=== PATIENT | female | born 1945 | race Caucasian/White ===

== ENCOUNTER 2017-06-09 05:15 | Inpatient (IN) | payer MEDICARE, OTHER ==
[2017-06-08 13:48] LABS: BASOPHILS % (AUTO) 0 % (0-1); EOSINOPHILS # (AUTO) 0.2 X10'3 (0-0.9); EOSINOPHILS % (AUTO) 3.6 % (0-6); LYMPHOCYTES # (AUTO) 0.5 X10'3 (1.1-4.8); LYMPHOCYTES % (AUTO) 11.2 % (21-51); MEAN CORPUSCULAR HEMOGLOBIN 30.6 PG (27.0-31.0); MEAN CORPUSCULAR HGB CONC 32.5 % (33.0-36.5); MEAN CORPUSCULAR VOLUME 94.1 FL (78-98); MEAN PLATELET VOLUME 8.8 FL (7.4-10.4); MONOCYTES # (AUTO) 0.1 X10'3 (0-0.9); MONOCYTES % (AUTO) 2.6 % (2-12); NEUTROPHILS # (AUTO) 3.8 X10'3 (1.8-7.7); NEUTROPHILS % (AUTO) 82.6 % (42-75); PRE OP HEMATOCRIT 35.7 % (35.0-45.0); PRE OP HEMOGLOBIN 11.6 g/dL (12.0-16.0); PRE OP PLATELET COUNT 140 X10'3 (140-440); RED BLOOD COUNT 3.79 X10'6 (4.20-5.60); RED CELL DISTRIBUTION WIDTH 17.2 % (11.5-14.5)
[2017-06-08 13:51] LABS: CLARITY,URINE SLIGHTLY CLOUDY (Clear); COLOR,URINE YELLOW (Yellow); GLUCOSE, URINE NEGATIVE (Neg); KETONES,URINE NEGATIVE (Neg); LEUKOCYTE ESTERASE ,URINE SMALL (Neg); NITRITES, URINE NEGATIVE (Neg); OCCULT BLOOD,URINE NEGATIVE (Neg); PH,URINE 5.5 (4.8-8.0); PROTEIN,URINE NEGATIVE (Neg); UROBILINOGEN,URINE 0.2 E.U/dL (0.2-1.0)
[2017-06-08 13:58] LABS: PRE OP PROTIME 10.4 SECONDS (9.0-12.0)
[2017-06-08 14:02] LABS: ALBUMIN 3.2 G/DL (3.4-5.0); ALKALINE PHOSPHATASE 123 IU/L (46-116); BLOOD UREA NITROGEN 14 MG/DL (7-18); BUN/CREATININE RATIO 14.3 (6.6-38.0); CALCIUM 8.8 MG/DL (8.5-10.1); CHLORIDE 107 MMOL/L (99-107); CREATININE 0.98 MG/DL (0.40-0.90); PRE OP ALT 33 U/L (30-65); PRE OP ANION GAP 6 (8-16); PRE OP AST 27 U/L (10-37); PRE OP BILIRUB, TOTAL 0.4 MG/DL (0.0-1.0); PRE OP GLUCOSE 101 MG/DL (70-104); PRE OP SODIUM 142 MMOL/L (135-145); TOTAL CARBON DIOXIDE 28.6 MMOL/L (24-32); TOTAL PROTEIN 6.5 G/DL (6.4-8.2); eGFR 56 ML/MIN
[2017-06-08 14:11] LABS: UA COLLECTION TYPE CLN CATCH MIDSTREAM
[2017-06-08 14:14] LABS: BACTERIA,URINE 1+ /HPF (Neg); RBC,URINE 0-2 /HPF (0-2); SQUAMOUS EPITHELIAL CELL,UR MANY /LPF (FEW)
[2017-06-09] VITALS (29 sets, daily range): BP systolic 82–140; BP diastolic 36–72
[~2017-06-09] VITALS: Ht 157.5 cm; Wt 82.2 kg
[~2017-06-09 05:15] MED LIST: ALBU8.5H8 INH; ALEN70TA13 PO; AMI25T PO; AMLO1TAB12 PO; CAP25T PO; FOLI-43 PO; FURO-150 PO; GABA-338 PO; HYDR200T84 PO; METH2.5T17 PO; POTA8CAP PO; REM100I IV; THEO600T PO; ringers solution, lacted 1,000 ML IV SCH
[2017-06-09] MEDS ORDERED: famotidine 20mg tablet PO ONE (05:30)
[2017-06-09] MEDS ORDERED: VANCOMYCIN INJ 1000 MG in NORMAL SALINE 250ml IV.SOLN IV ONE (05:30)
[2017-06-09] MEDS ORDERED: cefazolin/dext.iso 2gm/50ml 50 ML IV ONE (05:30)
[2017-06-09] MEDS ORDERED: LIDOcaine 1% (10mg/ml) 2ml vial ONE (06:04)
[2017-06-09 06:21] LABS: CLARITY,URINE Clear (Clear); COLOR,URINE Yellow (Yellow); GLUCOSE, URINE Negative (Neg); KETONES,URINE Negative (Neg); LEUKOCYTE ESTERASE ,URINE Small (Neg); NITRITES, URINE Negative (Neg); OCCULT BLOOD,URINE Negative (Neg); PH,URINE 6.5 (4.8-8.0); PROTEIN,URINE Negative (Neg)
[2017-06-09 06:27] LABS: UA COLLECTION TYPE CLN CATCH MIDSTREAM
[2017-06-09 06:28] LABS: BACTERIA,URINE NONE SEEN /HPF (Neg); MUCUS STRANDS NONE SEEN /LPF (Neg); RBC,URINE NONE SEEN /HPF (0-2); SQUAMOUS EPITHELIAL CELL,UR MODERATE /LPF (FEW); WBC,URINE 0-4 /HPF (0-4)
[2017-06-09] MEDS ORDERED: heparin 10,000 units/1 ML INJ ONE (06:30)
[2017-06-09] MEDS ORDERED: ROPIVAcaine 0.5% (5mg/ml) 30ml vial ONE (06:30)
[2017-06-09] MEDS ORDERED: ketorolac trometh. 30mg/ml inj. ONE (06:30)
[2017-06-09] MEDS ORDERED: sevoflurane 250ml liquid IH ONE (07:21)
[2017-06-09] MEDS ORDERED: fentaNYL/PF 50MCG/1 ML 2ML syringe ONE ×2 (07:25→08:38)
[2017-06-09] MEDS ORDERED: midazolam 2 mg/2 ml injection ONE (07:26)
[2017-06-09] MEDS ORDERED: propofol inj 20 ML IV ONE (07:27)
[2017-06-09] MEDS ORDERED: ringers solution, lacted 1,000 ML IV SCH (08:23)
[2017-06-09] MEDS ORDERED: ondansetron/PF 4mg/2ml inj IV PRN ×2 (08:25→10:40)
[2017-06-09] MEDS ORDERED: meperidine/PF 25mg/ml syringe IV ONE (08:25)
[2017-06-09] MEDS ORDERED: meperidine/PF 25mg/ml syringe IV PRN (08:25)
[2017-06-09] MEDS ORDERED: HYDROmorphone 1 mg/ml syringe IV PRN (08:25)
[2017-06-09] MEDS ORDERED: proCHLORperazine 10 MG/2 ml inj IV PRN (08:25)
[2017-06-09] MEDS ORDERED: rocuronium 10mg/ml inj IV ONE (08:38)
[2017-06-09] MEDS ORDERED: ceFAZolin 1000mg inj ONE (09:45)
[2017-06-09] MEDS ORDERED: non-formulary drug (Alendronate Sodium 70 MG) PO SCH (10:35)
[2017-06-09] MEDS ORDERED: bisacodyl 10mg suppository rectal RC PRN (10:40)
[2017-06-09] MEDS ORDERED: acetaminophen 325mg tablet PO PRN (10:40)
[2017-06-09] MEDS ORDERED: magnesium hydroxide 30ml (MOM) UD suspension PO PRN (10:40)
[2017-06-09] MEDS ORDERED: naloxone 0.4 mg/ml inj IV PRN (10:40)
[2017-06-09] MEDS ORDERED: CADD PCA waste documentation MC PRN (10:40)
[2017-06-09] MEDS ORDERED: diphenhydrAMINE 25mg capsule PO PRN (10:40)
[2017-06-09] MEDS ORDERED: albuterol 2.5 MG/3 ML nebule NEB PRN (10:45)
[2017-06-09] MEDS: meperidine/PF 25mg/ml syringe IV PRN ×2 (11:11→15:48)
[2017-06-09] MEDS ORDERED: acetaminophen 1,000mg/100ml IV 100 ML IV PRN (11:15)
[2017-06-09] MEDS ORDERED: fentaNYL/PF 50MCG/1 ML 2ML syringe IV PRN ×2 (11:15)
[2017-06-09] MEDS ORDERED: HYDROmorphone inj. 0.5 MG/0.5 ML DISP.SYRIN IV PRN (11:35)
[2017-06-09] MEDS: HYDROmorphone/NS 1 mg/ml CADD 50 ML IV SCH ×8 (11:35→23:53)
[2017-06-09] MEDS ORDERED: theophylline anhydrous 100mg SR-12hr tablet PO SCH (13:00)
[2017-06-09] MEDS ORDERED: gabapentin 300mg capsule PO SCH (13:00)
[2017-06-09] MEDS: potassium cl 20mEq in 1/2 NS 1,000 ML IV SCH ×2 (14:04→20:41)
[2017-06-09] MEDS: gabapentin 300mg capsule PO SCH ×2 (14:04→20:33)
[2017-06-09] MEDS: ceFAZolin inj. 1,000 MG in dextrose 5%-water 50ml 50 ML IV SCH ×2 (16:20→23:48)
[2017-06-09] MEDS ORDERED: vancomycin/NS 1 GM ADD-VANTAGE 250 ML IV SCH (20:00)
[2017-06-09] MEDS ORDERED: celeCOXIB 100mg capsule PO SCH (20:00)
[2017-06-09] MEDS: ascorbic acid 500mg tablet PO SCH (20:32)
[2017-06-09] MEDS: sennosides/docusate sodium tablet PO SCH (20:32)
[2017-06-09] MEDS: amitriptyline 25mg tablet PO SCH (20:32)
[2017-06-09] MEDS: THEOPHYLLINE 300 MG PO SCH (21:00)
[2017-06-09] MEDS: amLODIPine 5mg tablet PO SCH (21:00)
[2017-06-09] MEDS ORDERED: AMLODIPINE PO SCH (21:00)
[2017-06-09] MEDS: sennosides 8.6mg tablet PO SCH (21:00)
[2017-06-09] MEDS ORDERED: VALSARTAN PO SCH (21:00)
[2017-06-10] VITALS (14 sets, daily range): BP systolic 89–138; BP diastolic 42–80
[2017-06-10] MEDS: potassium cl 20mEq in 1/2 NS 1,000 ML IV SCH ×4 (02:37→21:58)
[2017-06-10] MEDS: HYDROmorphone/NS 1 mg/ml CADD 50 ML IV SCH ×8 (03:00→17:00)
[2017-06-10 06:41] LABS: BASOPHILS % (AUTO) 0.2 % (0-1); EOSINOPHILS # (AUTO) 0.1 X10'3 (0-0.9); EOSINOPHILS % (AUTO) 3.6 % (0-6); HEMATOCRIT 23.3 % (35.0-45.0); HEMOGLOBIN 7.7 g/dl (12.0-16.0); LYMPHOCYTES # (AUTO) 1.1 X10'3 (1.1-4.8); LYMPHOCYTES % (AUTO) 29.7 % (21-51); MEAN CORPUSCULAR HEMOGLOBIN 31.1 PG (27.0-31.0); MEAN PLATELET VOLUME 8.4 FL (7.4-10.4); MONOCYTES # (AUTO) 0.1 X10'3 (0-0.9); MONOCYTES % (AUTO) 4.1 % (2-12); NEUTROPHILS # (AUTO) 2.2 X10'3 (1.8-7.7); NEUTROPHILS % (AUTO) 62.4 % (42-75); PLATELET COUNT 114 X10'3 (140-440); RED BLOOD COUNT 2.48 X10'6 (4.20-5.60); WHITE BLOOD COUNT 3.6 X10'3 (4.5-11.0)
[2017-06-10] MEDS: potassium chloride 8mEq ER tablet PO SCH (07:58)
[2017-06-10] MEDS: folic acid 1mg tablet PO SCH (07:58)
[2017-06-10] MEDS: gabapentin 300mg capsule PO SCH ×3 (07:59→20:32)
[2017-06-10] MEDS: furosemide 20MG tablet PO SCH (08:00)
[2017-06-10] MEDS: lisinopril 20mg tablet PO SCH (08:00)
[2017-06-10] MEDS: multivitamins, therapeutics tablet PO SCH (08:01)
[2017-06-10] MEDS: sennosides/docusate sodium tablet PO SCH ×2 (08:01→20:32)
[2017-06-10] MEDS: ascorbic acid 500mg tablet PO SCH ×2 (08:02→20:31)
[2017-06-10] MEDS: HYDROcodone/acetaminophen 10/325mg tab PO PRN ×4 (08:03→20:36)
[2017-06-10] MEDS: hydroxychloroquine 200mg tablet PO SCH (08:04)
[2017-06-10] MEDS: enoxaparin 40mg/0.4ml syringe SQ SCH (08:06)
[2017-06-10 08:14] LABS: ANION GAP 8 (8-16); CHLORIDE 106 MMOL/L (99-107); POTASSIUM 4.7 MMOL/L (3.5-5.1); SODIUM 136 MMOL/L (135-145)
[2017-06-10] MEDS: THEOPHYLLINE 300 MG PO SCH ×3 (09:45→20:37)
[2017-06-10] MEDS: diphenhydrAMINE 25mg capsule PO PRN ×2 (12:31→19:19)
[2017-06-10] MEDS ORDERED: HYDROmorphone 1 mg/ml syringe IV PRN ×2 (18:50)
[2017-06-10] MEDS: sennosides 8.6mg tablet PO SCH (20:31)
[2017-06-10] MEDS: amLODIPine 5mg tablet PO SCH (20:36)
[2017-06-10] MEDS: amitriptyline 25mg tablet PO SCH (20:36)
[2017-06-11] MEDS: diphenhydrAMINE 25mg capsule PO PRN ×3 (04:55→21:48)
[2017-06-11] MEDS: HYDROcodone/acetaminophen 10/325mg tab PO PRN ×3 (04:56→14:32)
[2017-06-11 06:00] VITALS: BP 118/57
[2017-06-11 06:34] LABS: BASOPHILS % (AUTO) 0.3 % (0-1); EOSINOPHILS # (AUTO) 0.1 X10'3 (0-0.9); EOSINOPHILS % (AUTO) 4.4 % (0-6); HEMATOCRIT 28.5 % (35.0-45.0); HEMOGLOBIN 9.7 g/dl (12.0-16.0); LYMPHOCYTES # (AUTO) 1.2 X10'3 (1.1-4.8); LYMPHOCYTES % (AUTO) 34.7 % (21-51); MEAN CORPUSCULAR HEMOGLOBIN 31.3 PG (27.0-31.0); MEAN CORPUSCULAR HGB CONC 33.9 % (33.0-36.5); MEAN CORPUSCULAR VOLUME 92.2 FL (78-98); MEAN PLATELET VOLUME 8.1 FL (7.4-10.4); MONOCYTES # (AUTO) 0.3 X10'3 (0-0.9); MONOCYTES % (AUTO) 8.6 % (2-12); NEUTROPHILS # (AUTO) 1.8 X10'3 (1.8-7.7); PLATELET COUNT 83 X10'3 (140-440); RED BLOOD COUNT 3.09 X10'6 (4.20-5.60); RED CELL DISTRIBUTION WIDTH 16.5 % (11.5-14.5); WHITE BLOOD COUNT 3.4 X10'3 (4.5-11.0)
[2017-06-11] MEDS: gabapentin 300mg capsule PO SCH ×3 (07:54→19:54)
[2017-06-11] MEDS: folic acid 1mg tablet PO SCH (07:54)
[2017-06-11] MEDS: potassium chloride 8mEq ER tablet PO SCH (07:54)
[2017-06-11] MEDS: multivitamins, therapeutics tablet PO SCH (07:55)
[2017-06-11] MEDS: sennosides/docusate sodium tablet PO SCH ×2 (07:55→19:53)
[2017-06-11] MEDS: ascorbic acid 500mg tablet PO SCH ×2 (07:55→19:53)
[2017-06-11] MEDS: THEOPHYLLINE 300 MG PO SCH (07:59)
[2017-06-11] MEDS: hydroxychloroquine 200mg tablet PO SCH ×2 (07:59→15:38)
[2017-06-11] MEDS: lisinopril 20mg tablet PO SCH (07:59)
[2017-06-11] MEDS: furosemide 20MG tablet PO SCH (07:59)
[2017-06-11] MEDS: enoxaparin 40mg/0.4ml syringe SQ SCH (08:00)
[2017-06-11 10:00] VITALS: BP 105/58
[2017-06-11] MEDS ORDERED: THEOPHYLLINE 300 MG PO SCH (11:50)
[2017-06-11] MEDS: [UNRECOGNIZED DRUG - OTHER] PO SCH ×2 (14:31→19:54)
[2017-06-11 18:00] VITALS: BP 113/48
[2017-06-11] MEDS: amLODIPine 5mg tablet PO SCH (19:53)
[2017-06-11] MEDS: amitriptyline 25mg tablet PO SCH (19:54)
[2017-06-11] MEDS: sennosides 8.6mg tablet PO SCH (20:06)
[2017-06-11 22:00] VITALS: BP 108/62
[2017-06-12] MEDS: diphenhydrAMINE 25mg capsule PO PRN ×2 (04:47→19:08)
[2017-06-12 06:35] LABS: BASOPHILS % (AUTO) 0.3 % (0-1); EOSINOPHILS # (AUTO) 0.2 X10'3 (0-0.9); EOSINOPHILS % (AUTO) 4.3 % (0-6); HEMATOCRIT 28.3 % (35.0-45.0); HEMOGLOBIN 9.6 g/dl (12.0-16.0); LYMPHOCYTES # (AUTO) 1.2 X10'3 (1.1-4.8); MEAN CORPUSCULAR HEMOGLOBIN 31.2 PG (27.0-31.0); MEAN CORPUSCULAR HGB CONC 33.8 % (33.0-36.5); MEAN CORPUSCULAR VOLUME 92.4 FL (78-98); MEAN PLATELET VOLUME 8.4 FL (7.4-10.4); MONOCYTES # (AUTO) 0.6 X10'3 (0-0.9); MONOCYTES % (AUTO) 11.3 % (2-12); NEUTROPHILS # (AUTO) 3.1 X10'3 (1.8-7.7); NEUTROPHILS % (AUTO) 61.1 % (42-75); PLATELET COUNT 86 X10'3 (140-440); RED BLOOD COUNT 3.06 X10'6 (4.20-5.60); WHITE BLOOD COUNT 5.1 X10'3 (4.5-11.0)
[2017-06-12 07:06] VITALS: BP 121/62
[2017-06-12] MEDS: [UNRECOGNIZED DRUG - OTHER] PO SCH ×3 (08:07→21:37)
[2017-06-12] MEDS: hydroxychloroquine 200mg tablet PO SCH (08:08)
[2017-06-12] MEDS: lisinopril 20mg tablet PO SCH (08:08)
[2017-06-12] MEDS: furosemide 20MG tablet PO SCH (08:08)
[2017-06-12] MEDS: folic acid 1mg tablet PO SCH (08:08)
[2017-06-12] MEDS: multivitamins, therapeutics tablet PO SCH (08:08)
[2017-06-12] MEDS: sennosides/docusate sodium tablet PO SCH ×2 (08:08→20:00)
[2017-06-12] MEDS: ascorbic acid 500mg tablet PO SCH ×2 (08:08→21:36)
[2017-06-12] MEDS: potassium chloride 8mEq ER tablet PO SCH (08:08)
[2017-06-12] MEDS: gabapentin 300mg capsule PO SCH ×3 (08:08→21:36)
[2017-06-12] MEDS: enoxaparin 40mg/0.4ml syringe SQ SCH (11:05)
[2017-06-12] MEDS: HYDROcodone/acetaminophen 10/325mg tab PO PRN (13:43)
[2017-06-12 14:59] VITALS: BP 110/56
[2017-06-12 19:00] VITALS: BP 120/53
[2017-06-12] MEDS: sennosides 8.6mg tablet PO SCH (21:00)
[2017-06-12] MEDS: amLODIPine 5mg tablet PO SCH (21:36)
[2017-06-12] MEDS: amitriptyline 25mg tablet PO SCH (21:36)
[2017-06-12 22:00] VITALS: BP 104/45
[2017-06-13] MEDS: HYDROcodone/acetaminophen 10/325mg tab PO PRN ×4 (01:36→15:27)
[2017-06-13 06:00] VITALS: BP 123/62
[2017-06-13] MEDS: enoxaparin 40mg/0.4ml syringe SQ SCH (08:00)
[2017-06-13] MEDS: furosemide 20MG tablet PO SCH (08:16)
[2017-06-13] MEDS: folic acid 1mg tablet PO SCH (08:16)
[2017-06-13] MEDS: potassium chloride 8mEq ER tablet PO SCH (08:16)
[2017-06-13] MEDS: gabapentin 300mg capsule PO SCH ×3 (08:17→21:41)
[2017-06-13] MEDS: hydroxychloroquine 200mg tablet PO SCH (08:17)
[2017-06-13] MEDS: sennosides/docusate sodium tablet PO SCH ×2 (08:18→20:00)
[2017-06-13] MEDS: multivitamins, therapeutics tablet PO SCH (08:18)
[2017-06-13] MEDS: ascorbic acid 500mg tablet PO SCH ×2 (08:18→21:41)
[2017-06-13] MEDS: [UNRECOGNIZED DRUG - OTHER] PO SCH ×2 (08:18→12:38)
[2017-06-13] MEDS: lisinopril 20mg tablet PO SCH (08:19)
[2017-06-13 10:00] VITALS: BP 111/50
[2017-06-13] MEDS: diphenhydrAMINE 25mg capsule PO PRN (10:12)
[2017-06-13 19:00] VITALS: BP 99/46
[2017-06-13] MEDS: amLODIPine 5mg tablet PO SCH (21:00)
[2017-06-13] MEDS: sennosides 8.6mg tablet PO SCH (21:00)
[2017-06-13] MEDS: amitriptyline 25mg tablet PO SCH (21:41)
[2017-06-13 22:30] VITALS: BP 105/47
[2017-06-14 02:30] VITALS: BP 115/65
[2017-06-14] MEDS: HYDROcodone/acetaminophen 10/325mg tab PO PRN (04:41)
[2017-06-14 06:00] VITALS: BP 121/50
[2017-06-14] MEDS: lisinopril 20mg tablet PO SCH (07:29)
[2017-06-14] MEDS: gabapentin 300mg capsule PO SCH (07:29)
[2017-06-14] MEDS: furosemide 20MG tablet PO SCH (07:30)
[2017-06-14] MEDS: ascorbic acid 500mg tablet PO SCH (07:30)
[2017-06-14] MEDS: multivitamins, therapeutics tablet PO SCH (07:30)
[2017-06-14] MEDS: potassium chloride 8mEq ER tablet PO SCH (07:31)
[2017-06-14] MEDS: sennosides/docusate sodium tablet PO SCH (07:31)
[2017-06-14] MEDS: hydroxychloroquine 200mg tablet PO SCH (07:31)
[2017-06-14] MEDS: folic acid 1mg tablet PO SCH (07:32)
[2017-06-14] MEDS: enoxaparin 40mg/0.4ml syringe SQ SCH (07:33)
[2017-06-14] MEDS ORDERED: [UNRECOGNIZED DRUG - OTHER] PO SCH (08:00)
[2017-06-14 10:00] VITALS: BP 109/49
== END 2017-06-14 11:30 | DRG 470 ==
LOC: PAS IN 05:15 → EDSTATUS 07:30 → ORTHO 4S 13:25
PROVIDERS: ADMIT Orthopaedic Surgery; ATTEND Orthopaedic Surgery
PROC: 0SR902Z Replacement of Right Hip Joint with Metal on Polyethylene Synthetic Substitute, Open Approach (ICD-10-PCS; principal; 2017-06-09 07:21)
PROC: 30233N1 Transfusion of Nonautologous Red Blood Cells into Peripheral Vein, Percutaneous Approach (ICD-10-PCS; 2017-06-10)
DX: M16.11 Unilateral primary osteoarthritis, right hip (principal); E66.9 Obesity, unspecified; M06.851 Other specified rheumatoid arthritis, right hip; N18.3 Chronic kidney disease, stage 3 (moderate); D62 Acute posthemorrhagic anemia; J45.909 Unspecified asthma, uncomplicated; M54.2 Cervicalgia; M54.5 Low back pain; M17.0 Bilateral primary osteoarthritis of knee; E78.5 Hyperlipidemia, unspecified; M81.0 Age-related osteoporosis without current pathological fracture; G89.4 Chronic pain syndrome; K21.9 Gastro-esophageal reflux disease without esophagitis; I12.9 Hypertensive chronic kidney disease with stage 1 through stage 4 chronic kidney disease, or unspecified chronic kidney disease; Z96.642 Presence of left artificial hip joint; Z88.6 Allergy status to analgesic agent; Z88.1 Allergy status to other antibiotic agents; Z79.899 Other long term (current) drug therapy; Z82.61 Family history of arthritis; Z82.49 Family history of ischemic heart disease and other diseases of the circulatory system; Z68.33 Body mass index [BMI] 33.0-33.9, adult
CPT/HCPCS: 36415; 73502; 76001; 80051; 80053; 81001; 85025; 85610; 85730; 86885; 86900; 86901; 86920; 87070; 87077; 87088; 97110; 97116; 97161; 97530; A6250; A6255; A6257; A6258; A6446; A6449; A6454; A7000; C1758; C1776; J0690; J1170; J1644; J1650; J1885; J2175; J2250; J2704; J2795; J3010; J3370; J3490; J7030; J7060; J7120; P9016; Q0163

== ENCOUNTER 2019-04-05 07:41 | Day surgery (SDC) | payer MEDICARE, OTHER ==
[2019-03-28 15:00] LABS: BASOPHILS # (AUTO) 0.1 X10'3 (0-0.2); BASOPHILS % (AUTO) 0.6 % (0-1); EOSINOPHILS # (AUTO) 0.3 X10'3 (0-0.9); EOSINOPHILS % (AUTO) 2.5 % (0-6); LYMPHOCYTES # (AUTO) 3.1 X10'3 (1.1-4.8); LYMPHOCYTES % (AUTO) 28.4 % (21-51); MEAN CORPUSCULAR HEMOGLOBIN 31.6 PG (27.0-31.0); MEAN CORPUSCULAR HGB CONC 33.4 g/dL (33.0-36.5); MEAN CORPUSCULAR VOLUME 94.6 FL (78-98); MEAN PLATELET VOLUME 9.6 FL (7.4-10.4); MONOCYTES # (AUTO) 1.1 X10'3 (0-0.9); MONOCYTES % (AUTO) 10.4 % (2-12); NEUTROPHILS # (AUTO) 6.3 X10'3 (1.8-7.7); NEUTROPHILS % (AUTO) 58.1 % (42-75); PRE OP HEMATOCRIT 41.2 % (35.0-45.0); PRE OP HEMOGLOBIN 13.8 g/dL (12.0-16.0); PRE OP PLATELET COUNT 219 X10'3 (140-440); RED BLOOD COUNT 4.35 X10'6 (4.20-5.60); RED CELL DISTRIBUTION WIDTH 15.5 % (11.5-14.5)
[2019-03-28 15:09] LABS: PRE OP PROTIME 10.9 SECONDS (9.0-12.0)
[2019-03-28 15:11] LABS: ALBUMIN 3.6 G/DL (3.4-5.0); ALBUMIN/GLOBULIN RATIO 0.9 (1.1-1.5); ALKALINE PHOSPHATASE 120 IU/L (46-116); BLOOD UREA NITROGEN 18 MG/DL (7-18); BUN/CREATININE RATIO 16.4 (6.6-38.0); CALCIUM 9.1 MG/DL (8.5-10.1); CHLORIDE 110 MMOL/L (99-107); PRE OP ALT 21 U/L (30-65); PRE OP ANION GAP 10 (8-16); PRE OP AST 18 U/L (10-37); PRE OP BILIRUB, TOTAL 0.3 MG/DL (0.0-1.0); PRE OP GLUCOSE 91 MG/DL (70-104); PRE OP POTASSIUM 3.7 MMOL/L (3.4-5.1); PRE OP SODIUM 147 MMOL/L (135-145); TOTAL CARBON DIOXIDE 27.2 MMOL/L (24-32); TOTAL PROTEIN 7.4 G/DL (6.4-8.2); eGFR 49 ML/MIN
[2019-04-05] VITALS (10 sets, daily range): BP systolic 125–162; BP diastolic 59–79
[~2019-04-05] VITALS: Ht 157.5 cm; Wt 82.0 kg
[~2019-04-05 07:41] MED LIST changes: -ALEN70TA13 PO; -AMI25T PO; +CALC-854 PO; -CAP25T PO; +MULT-1133 PO; +albuterol 2.5 MG/3 ML nebule NEB ONE; +cefazolin/dext.iso 2gm/100 ML IV ONE; +famotidine 20mg tablet PO ONE; +vancomycin inj 1,500 MG in normal saline 300ml IV soln IV ONE; +vancomycin inj 500 MG in normal saline 100ml IV soln 100 ML IV ONE; +vancomycin/NS 1 GM ADD-VANTAGE 250 ML X 1 DOSE IV ONE
[2019-04-05] MEDS ORDERED: sevoflurane 250ml liquid IH ONE (09:26)
[2019-04-05] MEDS ORDERED: midazolam 2 mg/2 ml injection ONE (09:36)
[2019-04-05] MEDS ORDERED: propofol inj 20 ML IV ONE (09:41)
[2019-04-05] MEDS ORDERED: meperidine/PF 50mg/ml syringe ONE (09:43)
[2019-04-05] MEDS ORDERED: BUPIVAcaine/PF 2.5 mg/ml (0.25%) 30ml vial ONE (09:56)
[2019-04-05] MEDS ORDERED: dexamethasone sod phosphate 4mg/ml inj. ONE (10:04)
[2019-04-05] MEDS ORDERED: triamcinolone acetonide 40mg/ml inj ONE (10:06)
[2019-04-05] MEDS ORDERED: ringers solution, lacted 1,000 ML IV SCH (10:06)
[2019-04-05] MEDS ORDERED: HYDROmorphone inj. 0.5 MG/0.5 ML DISP.SYRIN IV PRN (10:10)
[2019-04-05] MEDS ORDERED: meperidine/PF 25mg/ml syringe IV PRN ×2 (10:10)
[2019-04-05] MEDS ORDERED: ondansetron/PF 4mg/2ml inj IV PRN (10:10)
--- NOTE | 2019-04-05 10:40 | NUR ---
Received from OR via [facility] , accompanied by Anesthesiologist VIPUL and report given by Anesthesiolgist. PATIENT WITH 20G PIV IN LEFT UE RUNNING LR AT 100. DENIES PAIN. LMA REMOVED UPON ARRIVAL. 100% SATURATIONS. LEFT KNEE BIAS DRESSING IS CDI. + DORSALIS PEDIS PRESENT. UPPER DENTURE IN PLACE. Addendum: 04/05/19 at 1107 by Darian Juarez RN, RN Amended: Links added.
[2019-04-05] MEDS: meperidine/PF 25mg/ml syringe IV PRN ×2 (10:58→11:24)
[2019-04-05] MEDS: HYDROmorphone inj. 0.5 MG/0.5 ML DISP.SYRIN IV PRN ×2 (11:09→11:23)
[2019-04-05] MEDS ORDERED: oxyCODONE/APAP 10/325mg tablet PO ONE (11:30)
[2019-04-05] MEDS ORDERED: ketorolac tromethamine 15mg/ml inj. IV ONE (11:30)
--- NOTE | 2019-04-05 12:10 | NUR ---
ALL DC CRITERIA HAS BEEN MET. IV TAKEN OUT WITHOUT COMPLICATIONS. ALL INSTRUCTIONS COVERED AND ALL QUESTIONS ANSWERED. DRESSINGS CDI. OUT VIA WHEELCHAIR TO PERSONAL VEHICLE WHERE PATIENT WAS SECURED IN AND DRIVEN HOME BY FAMILY. DAUGHTER DROVE PATIENT HOME. PATIENT STATES 5-10 PAIN IS TOLERABLE. CURRENT PAIN LEVEL OF 6. PATIENT STATES SHE'S READY TO GO HOME. Addendum: 04/05/19 at 1229 by Darian Juarez RN, RN Amended: Links added.
== END 2019-04-05 12:10 | disposition home or self-care (01) ==
LOC: PAS 07:41
PROVIDERS: ATTEND Orthopaedic Surgery
DX: S83.272A Complex tear of lateral meniscus, current injury, left knee, initial encounter (principal); S83.232A Complex tear of medial meniscus, current injury, left knee, initial encounter; M17.0 Bilateral primary osteoarthritis of knee; M65.869 Other synovitis and tenosynovitis, unspecified lower leg; M94.262 Chondromalacia, left knee; M06.9 Rheumatoid arthritis, unspecified; I10 Essential (primary) hypertension; G89.4 Chronic pain syndrome; M16.0 Bilateral primary osteoarthritis of hip; E78.5 Hyperlipidemia, unspecified; M19.072 Primary osteoarthritis, left ankle and foot; M19.071 Primary osteoarthritis, right ankle and foot; J45.909 Unspecified asthma, uncomplicated; E66.9 Obesity, unspecified; Z96.643 Presence of artificial hip joint, bilateral; Z98.890 Other specified postprocedural states; Z90.710 Acquired absence of both cervix and uterus; Z68.33 Body mass index [BMI] 33.0-33.9, adult; X58.XXXA Exposure to other specified factors, initial encounter; Y93.89 Activity, other specified; Y92.89 Other specified places as the place of occurrence of the external cause; Y99.8 Other external cause status; Z79.01 Long term (current) use of anticoagulants
CPT/HCPCS: 29873; 29879; 29880; 36415; 80053; 82948; 85025; 85610; 85730; 93005; J1100; J1170; J2175; J2250; J2704; J3301; J3370; J3490; A4215; A4618; A6250; A6449; A7000; J7120

== ENCOUNTER 2021-10-22 06:58 | Day surgery (SDC) | payer MEDICARE, OTHER ==
[2021-10-22] VITALS (8 sets, daily range): BP systolic 118–143; BP diastolic 66–77
[~2021-10-22] VITALS: Ht 157.5 cm; Wt 68.1 kg
[~2021-10-22 06:58] MED LIST changes: +ALBU8.5H17 INH; -ALBU8.5H8 INH; -THEO600T PO; +THEO600T5 PO; -albuterol 2.5 MG/3 ML nebule NEB ONE; -cefazolin/dext.iso 2gm/100 ML IV ONE; -famotidine 20mg tablet PO ONE; -ringers solution, lacted 1,000 ML IV SCH; -vancomycin inj 1,500 MG in normal saline 300ml IV soln IV ONE; -vancomycin inj 500 MG in normal saline 100ml IV soln 100 ML IV ONE; -vancomycin/NS 1 GM ADD-VANTAGE 250 ML X 1 DOSE IV ONE
[2021-10-22] MEDS ORDERED: albumin 25% 100mL bottle x 1 IV PRN (07:35)
[2021-10-22] MEDS ORDERED: LIDOcaine 1%/PF 5ML 10 MG/ML VIAL SQ ONE (07:35)
[2021-10-22] MEDS ORDERED: FURO40TA4 PO (07:43)
[2021-10-22] MEDS ORDERED: CHOL400C2 (07:46)
[2021-10-22] MEDS ORDERED: MIDO2.5T14 PO (07:47)
[2021-10-22] MEDS ORDERED: Carvedilol PO (07:52)
[2021-10-22] MEDS ORDERED: acetaminophen 325mg tablet PO ONE (09:35)
== END 2021-10-22 10:30 | disposition home or self-care (01) ==
LOC: SSTAY O 06:58
PROVIDERS: ATTEND Radiology Vascular & Interventional Radiology
DX: J90 Pleural effusion, not elsewhere classified (principal); I13.0 Hypertensive heart and chronic kidney disease with heart failure and stage 1 through stage 4 chronic kidney disease, or unspecified chronic kidney disease; N18.30 Chronic kidney disease, stage 3 unspecified; I50.9 Heart failure, unspecified; J45.909 Unspecified asthma, uncomplicated; I27.20 Pulmonary hypertension, unspecified; Z90.710 Acquired absence of both cervix and uterus; Z98.890 Other specified postprocedural states; Z88.8 Allergy status to other drugs, medicaments and biological substances; Z88.1 Allergy status to other antibiotic agents; Z79.899 Other long term (current) drug therapy
CPT/HCPCS: 32555; J3490

== ENCOUNTER 2022-01-28 07:07 | Day surgery (SDC) | payer MEDICARE, OTHER ==
[~2022-01-28] VITALS: Ht 157.5 cm; Wt 67.1 kg
[~2022-01-28 07:07] MED LIST changes: -AMLO1TAB12 PO; +CHOL400C2; +Carvedilol PO; -FURO-150 PO; +FURO40TA4 PO; +MIDO2.5T14 PO; -REM100I IV
[2022-01-28] MEDS ORDERED: LIDOcaine 1% 30ml preserv. free vial SQ STA (07:49)
[2022-01-28 08:28] VITALS: BP 137/79
== END 2022-01-28 09:00 | disposition home or self-care (01) ==
LOC: SSTAY O 07:07
PROVIDERS: ATTEND Radiology Vascular & Interventional Radiology
DX: J90 Pleural effusion, not elsewhere classified (principal); I13.0 Hypertensive heart and chronic kidney disease with heart failure and stage 1 through stage 4 chronic kidney disease, or unspecified chronic kidney disease; N18.30 Chronic kidney disease, stage 3 unspecified; J45.909 Unspecified asthma, uncomplicated; M19.90 Unspecified osteoarthritis, unspecified site; I27.20 Pulmonary hypertension, unspecified; Z88.8 Allergy status to other drugs, medicaments and biological substances; Z88.1 Allergy status to other antibiotic agents; Z88.6 Allergy status to analgesic agent; Z79.899 Other long term (current) drug therapy; Z98.890 Other specified postprocedural states
CPT/HCPCS: 76604

== ENCOUNTER 2022-04-08 08:32 | Day surgery (SDC) | payer MEDICARE, OTHER ==
[2022-04-01 16:39] LABS: CLARITY,URINE SLIGHTLY CLOUDY (Clear); COLOR,URINE YELLOW (Yellow); GLUCOSE, URINE NEGATIVE (Neg); KETONES,URINE NEGATIVE (Neg); LEUKOCYTE ESTERASE ,URINE MODERATE (Neg); NITRITES, URINE NEGATIVE (Neg); OCCULT BLOOD,URINE SMALL (Neg); PROTEIN,URINE NEGATIVE (Neg); UROBILINOGEN,URINE 0.2 E.U/dL (0.2-1.0)
[2022-04-01 16:42] LABS: UA COLLECTION TYPE CLN CATCH MIDSTREAM
[2022-04-01 16:46] LABS: BACTERIA,URINE 1+ /HPF (Neg); RBC,URINE 0-2 /HPF (0-2); WBC,URINE 20-30 /HPF (0-4)
[2022-04-01 16:47] LABS: PRE OP INR 1.3 INR; PRE OP PROTIME 13.4 SECONDS (9.0-12.0)
[2022-04-01 16:47] LABS: SQUAMOUS EPITHELIAL CELL,UR MANY /LPF (FEW); TRANSITIONAL EPI CELLS,URINE FEW /HPF
[2022-04-01 16:48] LABS: WBC CLUMPS,URINE MODERATE /HPF (NEGATIVE)
[2022-04-01 16:51] LABS: ALBUMIN/GLOBULIN RATIO 0.8 (1.1-1.5); ALKALINE PHOSPHATASE 91 IU/L (46-116); BLOOD UREA NITROGEN 14 MG/DL (7-18); BUN/CREATININE RATIO 16.5 (6.6-38.0); CALCIUM 9.5 MG/DL (8.5-10.1); CHLORIDE 106 MMOL/L (99-107); CREATININE 0.85 MG/DL (0.40-0.90); PRE OP ALT 11 U/L (30-65); PRE OP ANION GAP 9 (8-16); PRE OP AST 23 U/L (10-37); PRE OP BILIRUB, TOTAL 0.4 MG/DL (0.0-1.0); PRE OP GLUCOSE 71 MG/DL (70-104); PRE OP SODIUM 144 MMOL/L (135-145); TOTAL CARBON DIOXIDE 29.1 MMOL/L (24-32); eGFR 65 ML/MIN
[2022-04-01 17:02] LABS: BASOPHILS # (AUTO) 0.2 X10'3 (0-0.2); BASOPHILS % (AUTO) 1.5 % (0-1); EOSINOPHILS # (AUTO) 0.2 X10'3 (0-0.9); EOSINOPHILS % (AUTO) 2.1 % (0-6); LYMPHOCYTES # (AUTO) 1.5 X10'3 (1.1-4.8); LYMPHOCYTES % (AUTO) 14.3 % (21-51); MEAN CORPUSCULAR HEMOGLOBIN 27.7 PG (27.0-31.0); MEAN CORPUSCULAR VOLUME 89.3 FL (78-98); MEAN PLATELET VOLUME 8.6 FL (7.4-10.4); MONOCYTES % (AUTO) 9.6 % (2-12); NEUTROPHILS # (AUTO) 7.4 X10'3 (1.8-7.7); NEUTROPHILS % (AUTO) 72.5 % (42-75); PRE OP HEMOGLOBIN 11.8 g/dL (12.0-16.0); PRE OP PLATELET COUNT 290 X10'3 (140-440); RED BLOOD COUNT 4.26 X10'6 (4.20-5.60); RED CELL DISTRIBUTION WIDTH 17.2 % (11.5-14.5)
[2022-04-08] VITALS (9 sets, daily range): BP systolic 110–134; BP diastolic 53–73
[~2022-04-08] VITALS: Ht 157.5 cm; Wt 65.9 kg
[~2022-04-08 08:32] MED LIST changes: +ABAT50SY IV; +CARV12.549 PO; -CHOL400C2; +CHOL400C2 PO; -Carvedilol PO; +DENO60DI SUBCUT; +DOCUMENT DATE & TIME OF BETA-BLOCKER PO ONE; +METH2.5T PO; +albuterol 2.5 MG/3 ML nebule NEB ONE; +ceFAZolin inj. 2,000 MG in dextrose 5%-water 100 ML IV ONE; +famotidine 20mg tablet PO ONE; +ringers solution, lacted 1,000 ML IV SCH
[2022-04-08] MEDS ORDERED: BUPIVAcaine/PF 2.5 mg/ml (0.25%) 30ml vial ONE (10:52)
[2022-04-08] MEDS ORDERED: bacitracin 15gm ointment TP ONE (10:52)
[2022-04-08] MEDS ORDERED: midazolam 1 mg/ML 2ml injection ONE (10:59)
[2022-04-08] MEDS ORDERED: ePHEDrine 50MG/ML INJ. ONE (11:01)
[2022-04-08] MEDS ORDERED: sevoflurane 250ml liquid IH ONE (11:01)
[2022-04-08] MEDS ORDERED: ringers solution, lacted 1,000 ML IV SCH (12:40)
[2022-04-08] MEDS ORDERED: ondansetron/PF 4mg/2ml inj IV PRN (12:40)
[2022-04-08] MEDS ORDERED: acetaminophen 1,000mg/100ml IV 100 ML IV PRN (12:40)
[2022-04-08] MEDS ORDERED: HYDROmorphone/PF 0.2 MG/ML SYRINGE IV PRN ×2 (12:40)
[2022-04-08] MEDS ORDERED: ROPIVAcaine 0.2% (10 MG/5 ML) BOLUS INJECTION POPLITEAL PRN (12:52)
[2022-04-08] MEDS ORDERED: propofol inj 20 ML IV ONE (14:11)
[2022-04-08] MEDS ORDERED: dexamethasone sod phosphate 4mg/ml inj. ONE (14:11)
[2022-04-08] MEDS ORDERED: ondansetron/PF 4mg/2ml inj ONE (14:11)
--- NOTE | 2022-04-08 14:18 | NUR ---
Received from OR via [facility] , accompanied by Anesthesiologist VIPUL and report given by Anesthesiolgist. PATIENT WITH 20G PIV IN LEFT HAND RUNNING LR AT 100. LEFT FOOT IN SPLINT THAT IS CDI. ABLE TO MOVE TOES AND TOES ARE ALL PWD. VSS.10L [place] WITH 100% SATURATOINS. Addendum: 04/08/22 at 1427 by Darian Juarez RN, RN Amended: Links added.
[2022-04-08] MEDS: ROPIVAcaine 0.2%/PF PUMP/bolus 545 ML POPLITEAL SCH ×2 (14:48→14:56)
--- NOTE | 2022-04-08 15:28 | NUR ---
ALL DISCHARGE CRITERIA HAS BEEN MET. VSS, PAIN AT A TOLERABLE LEVEL, VOIDING AND ABLE TO SAFELY AMBULATE AND TRANSFER SELF. IV TAKEN OUT WITHOUT ANY COMPLICATIONS. ALL DISCHARGE INSTRUCTIONS COVERED WITH PATIENTS DAUGHTER/EVALUATION ASSISTANT AND ALL QUESTIONS ANSWERED. PATIENT TAKEN OUT VIA WHEELCHAIR TO PERSONAL VEHICLE WHERE FAMILY/FRIEND DROVE PATIENT HOME. INSTRUCTIONS FOR ON Q AND ITS USE WELL DC FROM PATIENT ALL INCLUDED. DAUGHTER WILL BE STAYING AND BE THE MAIN CAREGIVEER FOR THIS PATIENT AT HOME. PIVOTED NWB TO VEHICLE FROM WHEELCHAIR TO PERSONAL VEHICLE. Addendum: 04/08/22 at 1619 by Darian Juarez RN, RN Amended: Links added.
== END 2022-04-08 15:28 | disposition home or self-care (01) ==
LOC: PAS 08:32
PROVIDERS: ATTEND Podiatrist Foot & Ankle Surgery
DX: M19.072 Primary osteoarthritis, left ankle and foot (principal); M06.9 Rheumatoid arthritis, unspecified; I10 Essential (primary) hypertension; M21.6X2 Other acquired deformities of left foot; G58.8 Other specified mononeuropathies; Z79.899 Other long term (current) drug therapy; Z98.890 Other specified postprocedural states; G89.18 Other acute postprocedural pain; Z79.01 Long term (current) use of anticoagulants; Z90.710 Acquired absence of both cervix and uterus
CPT/HCPCS: 27687; 28715; 36415; 64447; 64784; 71046; 73620; 76942; 80053; 81001; 85025; 85610; 85730; A6223; C1713; C1716; J0131; J0690; J1100; J1170; J2250; J2405; J2704; J2795; J3490; J7030; J7060; J7120; Z7506; Z7508; Z7512; 76000; A4618; A6253; A6449; A7000

== ENCOUNTER 2022-09-13 13:19 | Outpatient (CLI) | payer MEDICARE, OTHER ==
[~2022-09-13 13:19] MED LIST changes: -DOCUMENT DATE & TIME OF BETA-BLOCKER PO ONE; -albuterol 2.5 MG/3 ML nebule NEB ONE; -ceFAZolin inj. 2,000 MG in dextrose 5%-water 100 ML IV ONE; -famotidine 20mg tablet PO ONE; -ringers solution, lacted 1,000 ML IV SCH
== END 2022-09-13 23:59 | disposition home or self-care (01) ==
LOC: CARD DIAG 13:19
PROVIDERS: ATTEND Internal Medicine Cardiovascular Disease
DX: I08.3 Combined rheumatic disorders of mitral, aortic and tricuspid valves (principal); I50.30 Unspecified diastolic (congestive) heart failure
CPT/HCPCS: 93306

== ENCOUNTER 2023-05-02 18:09 | Emergency (ER) | payer MEDICARE, OTHER ==
[~2023-05-02] VITALS: Ht 160 cm; Wt 63.0 kg
[~2023-05-02 18:09] MED LIST changes: +HYDR200T73 PO; -HYDR200T84 PO; +NORepinephrine 8 MG in NS 250 ML BAG (32 mcg/ml) IV ONE; +amiodarone 50MG/ML inj IV ONE; +dextrose 50%-water 50ml dispensing syringe IV ONE; +epiNEPHrine 0.1mg/ml 10ml syringe ONE; +sodium bicarbonate (8.4%) 1 mEq/ml syringe ONE
--- NOTE | 2023-05-02 18:28 | NUR ---
SPOKE TO FAMILY, BRANNON. PER FAMILY, PT WISHES ARE NO INTUBATION, CPR OK, LIFE SAVING MEDS OK, SHOCK OK. PER FAMILY, DOESN'T WANT "EXTRAVAGENT" LIFE SAVING MEASURES. BRANNON STATES SHE IS ON THE WAY HERE FROM [place].
--- NOTE | 2023-05-02 19:41 | NUR ---
CONTACTED DONOR NETWORK AND SPOKE TO Yahs COLON ,GIVEN OKAY TO RELEASE THE PATIENT ,NOT A CANDIDATE FOR DONATION.REFERENCE NO: [id number].
--- NOTE | 2023-05-02 19:45 | NUR ---
RACHELL HILLS SPOKE TO PT DAUGHTER BRANNON PATRICIO TO REPORT THE , PER BRANNON SHE IS ON HER WAY TO [place] ,COMING FROM [place].
[2023-05-02 19:50] LABS: EOSINOPHILS % (AUTO) 0.4 % (0-6); LYMPHOCYTES # (AUTO) 0.8 X10'3 (1.1-4.8); LYMPHOCYTES % (AUTO) 10.9 % (21-51); MEAN CORPUSCULAR HEMOGLOBIN 29.5 PG (27.0-31.0); MEAN CORPUSCULAR HGB CONC 29.4 g/dL (33.0-36.5); MONOCYTES # (AUTO) 0.1 X10'3 (0-0.9); RED BLOOD COUNT 2.17 X10'6 (4.20-5.60); WHITE BLOOD COUNT 6.9 X10'3 (4.5-11.0)
[2023-05-02 19:52] LABS: BASOPHILS % (AUTO) 0.3 % (0-1); MEAN CORPUSCULAR VOLUME 100.2 FL (78-98); MEAN PLATELET VOLUME 9.9 FL (7.4-10.4); MONOCYTES % (AUTO) 1.3 % (2-12); NEUTROPHILS % (AUTO) 87.1 % (42-75); PLATELET COUNT 97 X10'3 (140-440); RED CELL DISTRIBUTION WIDTH 25.8 % (11.5-14.5)
--- NOTE | 2023-05-02 19:57 | NUR ---
CALLED [facility] OFFICE AND SPOKE TO MARIANNE TO REPORT PT PER MARIANNE THE MANAGER PHILOSOPHY OFFICE WILL CONTACT THE DATA WAREHOUSE MANAGER.
[2023-05-02 19:59] LABS: ALANINE AMINOTRANSFERASE 806 U/L (12-78); ALBUMIN 1.9 G/DL (3.4-5.0); ALBUMIN/GLOBULIN RATIO 0.7 (1.1-1.5); ALKALINE PHOSPHATASE 82 IU/L (46-116); ANION GAP 8 (8-16); BILIRUBIN,TOTAL 1.1 MG/DL (0.1-1.0); BLOOD UREA NITROGEN 73 MG/DL (7-18); BUN/CREATININE RATIO 23.4 (10.0-20.0); CALCIUM 11.4 MG/DL (8.5-10.1); CHLORIDE 92 MMOL/L (99-107); CREATININE 3.12 MG/DL (0.40-0.90); GLUCOSE 242 MG/DL (70-104); MAGNESIUM 2.9 MG/DL (1.5-2.4); SODIUM 126 MMOL/L (135-145); TOTAL CARBON DIOXIDE 25.7 MMOL/L (24-32); TOTAL PROTEIN 4.8 G/DL (6.4-8.2); eCRCL 12 ML/MIN; eGFR 14 ML/MIN
[2023-05-02 20:03] LABS: ASPARTATE AMINO TRANSFERASE 1978 U/L (10-37); PRO BRAIN NATRIURETIC PEPTIDE > 30000 PG/ML (0-450)
--- NOTE | 2023-05-02 20:15 | NUR ---
SPOKE TO FARAZ CHANEY AT PEN OR PENCIL ASSEMBLY MACHINE OPERATOR OFFICE ,PEN OR PENCIL ASSEMBLY MACHINE OPERATOR'S DETERMINATION TO RELEASE THE BODY TO [facility] AND [facility] WITNESS BY [facility] EMT TECH PRESENT AT NURSES STATION.
[2023-05-02 20:28] LABS: HEMOGLOBIN 6.4 g/dl (12.0-16.0)
[2023-05-02 20:31] LABS: POTASSIUM 7.6 MMOL/L (3.5-5.1)
--- NOTE | 2023-05-02 21:42 | NUR ---
CALLED [facility] AND SPOKE TO ROBYN REGARDING TRANSPORT PER ROBYN ETA IS WITHIN AN HOUR,NOTIFIED AND SBAR TO LEILANI HILLS AND DOC CHARGE NURSE.
[2023-05-02 22:22] LABS: NUCLEATED RED BLOOD CELLS 7 /100WBC (0-0); PLATELET ESTIMATE DECREASED; TOTAL CELLS COUNTED 100
[2023-05-02 22:23] LABS: ANISOCYTOSIS 3+
[2023-05-02 22:24] LABS: ACANTHOCYTES FEW; BURR CELLS 2+; SCHISTOCYTES FEW
[2023-05-02 22:25] LABS: HYPOCHROMASIA 1+; POLYCHROMASIA FEW
[2023-05-02 22:26] LABS: ELLIPTOCYTES FEW
[2023-05-02 22:27] LABS: TEAR DROP CELLS FEW
[2023-05-03 00:04] LABS: HEMATOCRIT 21.8 % (35.0-45.0)
== END 2023-05-02 22:25 ==
LOC: ER 18:10
DX: I46.9 Cardiac arrest, cause unspecified (principal); K92.2 Gastrointestinal hemorrhage, unspecified; E87.5 Hyperkalemia; N17.9 Acute kidney failure, unspecified; R73.9 Hyperglycemia, unspecified; I21.3 ST elevation (STEMI) myocardial infarction of unspecified site; I10 Essential (primary) hypertension; J45.909 Unspecified asthma, uncomplicated; Z88.1 Allergy status to other antibiotic agents; Z88.6 Allergy status to analgesic agent; Z91.041 Radiographic dye allergy status; Z79.899 Other long term (current) drug therapy
CPT/HCPCS: 36415; 80053; 82948; 83735; 83880; 84484; 85007; 85025; 92950; 93005; 99285; J0171; J0282; J3490